=== PATIENT | female | born 1985 | race Caucasian/White ===

== ENCOUNTER 2017-06-12 16:34 | Emergency (ER) | payer OTHER ==
[2017-06-12 19:57] VITALS: BP 147/86
== END 2017-06-12 19:57 | disposition home or self-care (01) ==
LOC: ED 16:34
DX: M72.2 Plantar fascial fibromatosis (principal); S93.402A Sprain of unspecified ligament of left ankle, initial encounter; Z79.2 Long term (current) use of antibiotics; X50.1XXA Overexertion from prolonged static or awkward postures, initial encounter; Y93.89 Activity, other specified; Y92.89 Other specified places as the place of occurrence of the external cause; Y99.8 Other external cause status

== ENCOUNTER 2017-07-01 19:22 | Emergency (ER) | payer OTHER ==
[2017-07-01 20:47] LABS: BASOPHIL % 0.4 % (0-2); PLATELET COUNT 203 x10^3mcL (130-400); RED CELL DISTRIBUTION WIDTH 13.3 % (11.5-14.5)
[2017-07-01 20:55] LABS: CALCIUM 8.6 mg/dL (8.5-10.1); CARBON DIOXIDE 29.1 mmol/L (21-32); CHLORIDE SERUM 105 mmol/L (98-107); CREATININE SERUM 0.8 mg/dL (0.6-1.0); GFR1 > 60 mL/min; GLUCOSE SERUM 89 mg/dL (74-106); POTASSIUM SERUM 3.6 mmol/L (3.5-5.1); SODIUM SERUM 139 mmol/L (136-145)
[2017-07-01 21:00] LABS: ALBUMIN 3.6 g/dL (3.4-5.0); ALKALINE PHOSPHATASE 91 U/L (46-116); ALT/SGPT 82 U/L (14-59); AMYLASE 78 U/L (25-115); AST/SGOT 40 U/L (15-37); BILIRUBIN TOTAL 0.3 mg/dL (0.20-1.00); LIPASE 218 IU/L (73-393)
[2017-07-01 21:32] LABS: UA SPECIFIC GRAVITY 1.025 (1.005-1.035); microscopic required? YES; urine erythrocyte 2+ (NEGATIVE)
[2017-07-02 00:11] VITALS: BP 131/80
== END 2017-07-02 00:11 | disposition home or self-care (01) ==
LOC: ED 19:22
PROVIDERS: Emergency Medicine
DX: R10.13 Epigastric pain (principal); R10.11 Right upper quadrant pain; N39.0 Urinary tract infection, site not specified; Z87.442 Personal history of urinary calculi; Z79.899 Other long term (current) drug therapy
CPT/HCPCS: 83880; J1885; J2405; J7030; Q0092

== ENCOUNTER 2017-07-04 20:47 | Emergency (ER) | payer OTHER ==
[2017-07-04 23:26] VITALS: BP 162/93
== END 2017-07-04 23:26 | disposition home or self-care (01) ==
LOC: ED 20:47
DX: N39.0 Urinary tract infection, site not specified (principal)
CPT/HCPCS: J0295

== ENCOUNTER 2017-07-05 08:53 | Emergency (ER) | payer OTHER ==
[~2017-07-05] VITALS: Ht 162.6 cm; Wt 127.1 kg
[2017-07-05 13:15] LABS: BASOPHIL % 0.4 % (0-2); PLATELET COUNT 190 x10^3mcL (130-400)
[2017-07-05 13:32] LABS: CALCIUM 8.8 mg/dL (8.5-10.1); CARBON DIOXIDE 30.7 mmol/L (21-32); CHLORIDE SERUM 105 mmol/L (98-107); CREATININE SERUM 0.8 mg/dL (0.6-1.0); GFR1 > 60 mL/min; GLUCOSE SERUM 83 mg/dL (74-106); SODIUM SERUM 142 mmol/L (136-145)
[2017-07-05 14:23] LABS: PHOSPHOROUS 3.7 mg/dL (2.5-4.9)
[2017-07-05 14:28] LABS: CHOLESTEROL/HDL RATIO 4.3
[2017-07-05 14:31] LABS: FREE T4 1.4 ng/dL (0.76-1.46)
[2017-07-05 14:37] LABS: FREE THYROXINE INDEX 4.9 ug/dL (1.4-4.5); T4(THYROXINE) 13.6 ug/dL (4.7-13.3)
[2017-07-05 14:42] LABS: T3 TOTAL 1.44 ng/mL
--- NOTE | 2017-07-05 17:01 | NUR ---
SOCIAL SERVICE NOTE: RECEIVED CALL THIS MORNING REQUESTING HELP WITH DC PLAN TO INCLUDE IVABX. CONTACTED PT'S INSURANCE, MIKKI AT [facility], WHO ALSO COORDINATED THE PLAN WITH THE MEDICAL GROUP, [facility]. PT HAS BEEN SET UP WITH [facility] ([phone]) WHO WILL DELIVER THE PT'S MEDICATIONS/ PHARMACEUTICAL SUPPLIES TONIGHT BETWEEN [phone]. [facility] HAS BEEN ARRANGED FOR NURSING MANAGEMENT OF THE IV'S AND WILL INITIATE CARE TOMORROW ([phone]). THE [facility] CAR DISTRIBUTOR WILL ARRANGE A FOLLOW-UP WITH THE PT'S PCP. DR. LANDEROS, IN 2 WEEKS. I SPOKE WITH THE PT AND EXPLAINED ALL OF THE ABOVE; ANSWERED/ADDRESSSED HER QUESTIONS/CONCERNS. NURSING MADE AWARE WELL.
[2017-07-05 18:58] VITALS: BP 129/75
== END 2017-07-05 18:58 | disposition home or self-care (01) ==
LOC: ED 08:53
PROVIDERS: Family Medicine
DX: N39.0 Urinary tract infection, site not specified (principal); Z87.442 Personal history of urinary calculi
CPT/HCPCS: 36569; 84439; C1751; J0295; J1642; J2185; Q0092

== ENCOUNTER 2017-07-08 15:49 | Emergency (ER) | payer OTHER ==
[~2017-07-08] VITALS: Ht 160 cm; Wt 123.8 kg
[2017-07-08 17:26] VITALS: BP 158/84
== END 2017-07-08 17:26 | disposition home or self-care (01) ==
LOC: ED 15:49
DX: B37.49 Other urogenital candidiasis (principal); Z79.899 Other long term (current) drug therapy

== ENCOUNTER 2018-01-20 18:32 | Emergency (ER) | payer OTHER ==
[~2018-01-20] VITALS: Ht 160 cm; Wt 131.1 kg
[2018-01-20 20:44] VITALS: BP 152/104
== END 2018-01-20 20:44 | disposition home or self-care (01) ==
LOC: ED 18:32
DX: M75.41 Impingement syndrome of right shoulder (principal); M94.0 Chondrocostal junction syndrome [Tietze]
CPT/HCPCS: J1885; J2270; Q0092; Q0162

== ENCOUNTER 2018-02-24 21:32 | Emergency (ER) | payer OTHER ==
[~2018-02-24] VITALS: Ht 160 cm; Wt 85.3 kg
[2018-02-24 21:56] VITALS: Ht 160 cm; Wt 85.3 kg
[2018-02-24 23:02] VITALS: BP 166/70
== END 2018-02-24 23:02 | disposition home or self-care (01) ==
LOC: ED 21:32
DX: J00 Acute nasopharyngitis [common cold] (principal); H92.03 Otalgia, bilateral; J02.9 Acute pharyngitis, unspecified

== ENCOUNTER 2019-04-08 17:15 | Emergency (ER) | payer OTHER ==
[~2019-04-08] VITALS: Ht 160 cm; Wt 133.4 kg
[2019-04-08 17:37] VITALS: Ht 160 cm; Wt 133.4 kg
[2019-04-08 17:57] LABS: BASOPHIL % 0.4 % (0-2); PLATELET COUNT 209 x10^3mcL (130-400); RED CELL DISTRIBUTION WIDTH 13.2 % (11.5-14.5)
[2019-04-08 18:07] LABS: CALCIUM 8.9 mg/dL (8.5-10.1); CARBON DIOXIDE 34.1 mmol/L (21-32); CHLORIDE SERUM 104 mmol/L (98-107); CREATININE SERUM 0.8 mg/dL (0.6-1.0); GFR1 > 60 mL/min; GLUCOSE SERUM 111 mg/dL (74-106); SODIUM SERUM 144 mmol/L (136-145)
[2019-04-08 18:11] LABS: ALBUMIN 3.6 g/dL (3.4-5.0); ALKALINE PHOSPHATASE 101 U/L (46-116); ALT/SGPT 111 U/L (14-59); AST/SGOT 52 U/L (15-37); BILIRUBIN TOTAL 0.3 mg/dL (0.20-1.00); LIPASE 190 IU/L (73-393); TOTAL PROTEIN, SERUM 7.8 g/dL (6.4-8.2)
[2019-04-08 20:55] VITALS: BP 146/84
== END 2019-04-08 20:55 | disposition home or self-care (01) ==
LOC: ED 17:15
PROVIDERS: Emergency Medicine
DX: K29.70 Gastritis, unspecified, without bleeding (principal); N39.0 Urinary tract infection, site not specified; Z87.442 Personal history of urinary calculi
CPT/HCPCS: 36415; Q0092

== ENCOUNTER 2019-11-04 15:59 | Emergency (ER) | payer OTHER ==
[~2019-11-04] VITALS: Ht 160 cm; Wt 128.4 kg
[2019-11-04 16:11] VITALS: BP 154/90; Ht 160 cm; Wt 128.4 kg
== END 2019-11-04 17:26 | disposition home or self-care (01) ==
LOC: ED 15:59
DX: J20.9 Acute bronchitis, unspecified (principal); J02.9 Acute pharyngitis, unspecified; E66.01 Morbid (severe) obesity due to excess calories; Z68.43 Body mass index [BMI] 50.0-59.9, adult; Z87.442 Personal history of urinary calculi